=== PATIENT | female | born 1940 | race Caucasian/White ===

== ENCOUNTER 2019-08-17 10:12 | Day surgery (SDC) | payer MEDICARE, SELFPAY ==
[2019-07-24 10:32] VITALS: BMI 28.8
[2019-08-12 08:35] VITALS: BMI 29.3
--- NOTE | 2019-08-12 09:39 | HP_ITS ---
Intake Vital Signs 08/12/19 Body Mass Index (BMI) 29.3 08/12/19 Height 5 ft 4 in 08/12/19 Weight: 166 lb 08/12/19 Body Mass Index (BMI) 28.5 08/12/19 Blood Pressure 127/69 H 08/12/19 Blood Pressure Location Rt brachial 08/12/19 Blood Pressure Position Sitting 08/12/19 Respiratory Rate 16 Intake Visit Reasons: Port Consult Chief Complaint: F/u for Chemotherapy. 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 Is patient in pain?: No Allergies gabapentin Adverse Reaction (Verified 08/12/19 08:33) Other Medications ALPRAZolam [Xanax] 0.125 mg PO BID PRN PRN 07/23/19 [History Confirmed 08/12/19] Ascorbic Acid [Vitamin C] 250 mg PO DAILY 07/23/19 [History Confirmed 08/12/19] Cetirizine HCl [Zyrtec] 10 mg PO DAILY 07/23/19 [History Confirmed 08/12/19] Cholecalciferol (VIT D3) [Vitamin D] 4,000 unit PO DAILY 07/23/19 [History Confirmed 08/12/19] Dicyclomine HCl 20 mg PO Q6H PRN 07/23/19 [History Confirmed 08/12/19] Fluoxetine HCl 60 mg PO DAILY 07/23/19 [History Confirmed 08/12/19] Fluticasone 0.05% [Flonase Nasal [place]] 2 spray NASAL DAILY 07/23/19 [History Confirmed 08/12/19] Ipratropium/Albuterol Respimat [Combivent Respimat Inhal [place]] 1 puff INHALATION 4X/DAY 07/23/19 [History Confirmed 08/12/19] Levothyroxine [Synthroid] 112 mcg PO DAILY 07/23/19 [History Confirmed 08/12/19] Lovastatin [Mevacor] 10 mg PO DAILY 07/23/19 [History Confirmed 08/12/19] Magnesium Citrate 07/23/19 [History Confirmed 08/12/19] Multivitamin 07/23/19 [History Confirmed 08/12/19] Temazepam 30 mg PO QHS 07/23/19 [History Confirmed 08/12/19] Ondansetron [Zofran Odt] 4 mg PO Q8H PRN PRN 10 Days #30 tab 08/04/19 [Rx Confirmed 08/12/19] busPIRone [Buspar] 5 mg PO DAILY 08/04/19 [History Confirmed 08/12/19] PFSH Medical History Anxiety (Acute) Asthma (Acute) Bladder cancer (Acute) Cervical herniated disc (Acute) Hepatitis (Acute) History of bone scan (Acute) Hypothyroidism (Acute) Lumbar stenosis (Acute) transurethral bladder tumor resection (Acute) Surgical History History of appendectomy (Acute) History of carpal tunnel release (Acute) History of hip replacement (Acute) History of tubal ligation (Acute) Family History Mother Heart disease Father Diabetes Social History (Updated 08/12/19 @ 09:39 by Daniel Rahman MD) Smoking Status: Never smoker alcohol intake: never HPI HPI HPI: BENY REYES is a 79 F who presents to the office today for HPI HPI Surgical H&P: Yes HPI: BENY REYES is a 79 F who presents to the office today for Port placement. The patient has bladder cancer and is requiring chemotherapy and has poor veins for chemotherapy. ROS General General: No weight change or fatigue Cardio Cardiovascular: No murmur, pacemaker, heart disease, atrial fibrillation, high blood pressure, heart attack, heart stent, palpitations, shortness of breat with exertion or chest pain Psych Psychiatric: No depression or anxiety Resp Respiratory: No shortness of breath, No sleep apnea, No cough, No COPD, No asthma, No emphysema, No wheezing Gastro Gastrointestinal: No abdominal pain, No nausea or vomiting, No diarrhea, No constipation, No blood in stool, No acid reflux, No hemorrhoids, No ulcers, No gallbladder problem, No black,tarry stools Storm Hematologic: No blood thinners Exam Const General: cooperative Orientation: alert, oriented x3 Resp Effort & Inspection: normal respiratory effort Auscultation: clear to auscultation bilaterally Cardio Rate: regular rate Rhythm: regular rhythm Heart Sounds: no murmurs GI Inspection: non-distended Palpation: soft, nontender Assessment & Plan Problems 1. Malignant neoplasm of urinary bladder, unspecified site C67.9 2. Encounter for insertion of venous access port Z45.2 Plan 1. Patient requires port for chemotherapy. I discussed port placement with the patient in detail. I discussed the risks including but not limited to bleeding, infection, pneumothorax, line infection, DVT. Patient agrees to the risks and would like to proceed with surgery. Daniel Rahman MD Pager: [facility] [address] [place] [address], [address] [place] [address] Office: Coding Level of Care Code Off vis,new,level 3 Diagnoses Malignant neoplasm of urinary bladder, unspecified site C67.9 ??Bladder location: unspecified site Encounter for insertion of venous access port Z45.2 08/12/19 0939 <Electronically signed by Daniel carranza MD> Date _ Daniel Rahman MD I have re-examined the patient. There are no clinical changes since date of exam.
[2019-08-17] VITALS (7 sets, daily range): BP systolic 115–178; BP diastolic 48–76; PULSE 61–70; RESP 16; TEMP 36.4–37.3; O2SAT 94–100; BMI 29.0
[2019-08-17] MEDS: Lactated Ringers 1,000 ML 100 ML IV (13:06)
[2019-08-17] MEDS: Cefazolin 2 GM in 0.9% Normal Saline 100 ML IV (14:26)
--- NOTE | 2019-08-17 15:23 | OP.PCM_ITS ---
Problem List (1) Encounter for adjustment and management of vascular access device Status: Acute Report of Operation Date of Procedure: 08/17/19 Pre-Operative Diagnosis: Bladder cancer need for vascular access Post-Operative Diagnosis: Same Surgery/Procedure Performed:: Fluoroscopy and ultrasound-guided right chest port placement with right IJ utilization Description of Procedure: After obtaining informed consent patient was brought back to the operating room MAC anesthesia was induced and the right chest and neck were prepped in normal sterile fashion. Ultrasound was used to evaluate both IJs and the right IJ was selected. Next, using a needle, the right IJ was accessed and a guidewire was passed on into the superior vena cava under fluoroscopy guidance. A small incision was made over the puncture site and the dilator introducer was placed over the guidewire. Next this was capped and the pocket was made for the port. 1% lidocaine with epinephrine was injected in the proposed port site. An incision was made with scalpel. Electrocautery was used to make a pocket under the skin and subcutaneous tissue. Hemostasis was obtained. Next, the catheter was tunneled up to the neck incision site and placed through the introducer. The peel-away introducer was removed and the position of the catheter was confirmed on fluoroscopy. Next, the catheter was trimmed and attached to the port with the locking device. Interrupted 2-0 Vicryl sutures were used to anchor the port to the chest wall and then the port was placed inside the pocket. The pocket was then flushed with saline and the port irrigated with saline. There was good blood return and the port flushed easily. Next, heparin was injected into the port. The skin was closed with subcutaneous interrupted 3-0 Vicryl sutures. A single 3-0 Vicryl sutures placed under the skin at the neck incision site. Steri-Strips were placed as well as op sites. Next the port was accessed with the provided 90 degree Greene needle and the catheters were flushed once more with saline and heparin. The port was left accessed. Patient tolerated procedure well, was taken to PACU in stable condition. Chest x-ray will be obtained. Grafts/Implants Used: 8 [place] PowerPort - Admit VTE Documentation VTE Mechan Device Prophylaxis: SCD's
--- NOTE | 2019-08-17 15:25 | RAD_ITS ---
STUDY: X-RAY CHEST REASON FOR EXAM: Female, 79 years old. Vascular port placement. TECHNIQUE: Single AP portable view of the chest. COMPARISON: None. FINDINGS: A right-sided ngoc catheter is seen with the tip in the midportion of the superior vena cava. Calcified granuloma in the left lower lobe. There is no demonstrated pleural abnormality. Normal size heart. Normal mediastinum and hailee. Normal visualized pulmonary arteries. There is atherosclerotic calcification of the aortic arch with tortuosity. There are diffuse degenerative changes of the visualized thoracic spine. There is degenerative osteoarthritis of the bilateral shoulders. Prior left rotator cuff surgery. There is no demonstrated abnormality of the visualized soft tissue structures of the upper abdomen. RAD/CXR for Line Placement IMPRESSION: Calcified granuloma in the left lower lobe. Electronically Signed: Jordi Li, at 15:47 EST , Service support ,
--- NOTE | 2019-08-17 15:25 | PCM.DC.POR ---
Discharge Diet: No Restrictions - Pain medication may cause nausea. You should typically eat light foods as you take your pain medication. Discharge Activity: Return to Normal Activity, May Shower - with your bandage in place in 1-2 days after surgery. DO NOT SHOWER WHEN YOUR PORT IS ACCESSED. Call your doctor if your incision/area has: Continuous Slow Oozing, Sudden Increased Bleeding, Increased Pain/ Swelling, Increased Redness Call your doctor if you observe: Fever of 101 or Higher Remove Dressing in (days):: 3 - When you remove the bandage, leave the steri-strips intact until they fall off. Allergies/Adverse Reactions: Allergies gabapentin Adverse Reaction (Verified 08/17/19 12:39) Other Medications to take at Discharge ALPRAZolam [Xanax] 0.125 mg PO BID PRN PRN 07/23/19 Ascorbic Acid [Vitamin C] 250 mg PO DAILY 07/23/19 Cetirizine HCl [Zyrtec] 10 mg PO DAILY 07/23/19 Cholecalciferol (VIT D3) [Vitamin D] 4,000 unit PO DAILY 07/23/19 Dicyclomine HCl 20 mg PO Q6H PRN 07/23/19 Fluoxetine HCl 60 mg PO DAILY 07/23/19 Fluticasone 0.05% [Flonase Nasal [place]] 2 spray NASAL DAILY 07/23/19 Ipratropium/Albuterol Respimat [Combivent Respimat Inhal [place]] 1 puff INHALATION BID 07/23/19 Levothyroxine [Synthroid] 112 mcg PO DAILY 07/23/19 Lovastatin [Mevacor] 10 mg PO DAILY 07/23/19 Multivitamin 1 tab PO DAILY 07/23/19 Temazepam 30 mg PO QHS 07/23/19 Ondansetron [Zofran Odt] 4 mg PO Q8H PRN PRN 10 Days #30 tab 08/04/19 busPIRone [Buspar] 5 mg PO DAILY 08/04/19 Docusate Sodium [Colace] 100 mg PO DAILY PRN PRN 08/12/19 Primary Care Physician: STEPHANIE NEAL [Other] Test Results: Test results from this visit will be discussed in further detail at your follow-up appointment, if applicable. Please Follow Up With: Daniel Rahman MD When: Please call to schedule 2 week follow up appointment. [phone]
[2019-08-17] MEDS: Acetaminophen 325 MG Tablet 650 MG PO (16:36)
== END 2019-08-17 16:38 | disposition home or self-care (01) ==
LOC: SDC 10:13 → AC 12:24
PROVIDERS: Referring Provider Surgery; Visit Provider Surgery
PROC: (CPT 36561; principal; 2019-08-17 14:05)
DX: Z51.0 Encounter for antineoplastic radiation therapy (principal); C67.8 Malignant neoplasm of overlapping sites of bladder; Z45.2 Encounter for adjustment and management of vascular access device; F41.9 Anxiety disorder, unspecified; J45.909 Unspecified asthma, uncomplicated; E03.9 Hypothyroidism, unspecified; F32.9 Major depressive disorder, single episode, unspecified; Z79.51 Long term (current) use of inhaled steroids; Z79.899 Other long term (current) drug therapy
CPT/HCPCS: 00532; 36561; 71045; 77001; 77386; J7120; C1788

== ENCOUNTER 2019-09-06 20:08 | Emergency (ER) | payer MEDICARE, SELFPAY ==
[2019-07-24 10:32] VITALS: BMI 28.8
[2019-09-01 13:06] VITALS: BMI 29.1
[2019-09-06 20:09] VITALS: BP 162/66; PULSE 76; RESP 18; TEMP 37.2; O2SAT 99; BMI 28.5
--- NOTE | 2019-09-06 20:50 | ED.VISSUMM ---
- ER Visit Summary Date of Service: 09/06/19 Chief Complaint: Abdominal pain History of Present Illness: The patient is a 79 F who presents with abdominal pain that is been getting worse over the past week. Patient states she has a history of bladder cancer and is under treatment with Dr. Del Angel and Dr. Almazan. Patient states her last chemotherapy was 2 weeks ago. Patient states her last radiation was 5 days ago. Patient states her pain is over her upper abdomen and mid abdomen. Patient states her pain is worse with palpation. Patient admits to some nausea and vomiting. Patient had 3 episodes today. Patient denies any hematemesis or coffee-ground emesis. Patient states she did have some diarrhea recently and took some Imodium for that. Patient states that now she is constipated. Patient admits to some dysuria but she thinks that this is because she only urinates a small amount. Patient denies any hematuria. Physical Examination: Vital signs are stable. Patient is afebrile. Patient is in no acute distress. Oral mucosa is pink and moist. Neck is supple. Trachea is midline. There is no JVD. Heart was regular rate and rhythm. Lungs are clear and equal bilaterally. There is adequate respiratory effort noted. Abdomen is soft. Bowel sounds are normal. There is upper abdominal tenderness. There is no rebound or guarding noted. Cranial nerves II through XII are intact. There are no focal motor or sensory deficits noted. Test Results: CBC shows a white blood cell count of 3.4, hemoglobin of 8.2 and hematocrit 27.0. Comprehensive metabolic profile and lipase were essentially within normal limits. CT scan of the abdomen and pelvis with oral and IV contrast was ordered and is pending. Urinalysis was also ordered and is pending. Emergency Department Course and Treatment: Patient was given IV fluids and Zofran here. Patient is feeling better on reevaluation. Patient states she had a bowel movement and is feeling better. Disposition: Care of the patient was turned over to the oncoming physician. Impression: 1. Abdominal pain This note was generated with [employer] dictation software. It may contain incorrect words, spelling, and punctuation that were not noted in review of the chart prior to signing ED Disposition - Plan for ED Patient: Referrals: Care Physician,No Primary [NON-STAFF] -
--- NOTE | 2019-09-06 20:54 | CT_ITS ---
STUDY: CT ABDOMEN AND PELVIS WITH CONTRAST REASON FOR EXAM: Female, 79 years old. UPPER ABDOMEN PAIN X 1 WEEK,NAUSEA AND VOMITING,CONSTIPATION,PT HAD CHEMO 5 DAYS AGO -- HX:BLADDER CANCER,ASTHMA,HYPOTHYROID -- SURGERY:APPENDECTOMY,TUBAL,BLADDER RESECTION RADIATION DOSAGE (If Supplied By Facility): CTDIvol = ( 17.87 ) mGy, DLP = ( 1635.26 ) mGycm TECHNIQUE: Transaxial images were obtained from the dome of the diaphragm to the symphysis pubis without oral contrast. Oral and amp; IV Gastrografin and amp; 100mL Isovue-300 was administered. Sagittal and coronal images were reconstructed. Individualized dose optimization techniques were used for this CT. COMPARISON: None. FINDINGS: There are several calcified granulomas of the left lingula. There is a noncalcified right lower lobe nodule measuring 1.3 cm. The heart size is normal. There is no pericardial effusion. There are several tiny calcified granulomas of the liver. There is a small amount of calcific gravel in the gallbladder. There are multiple benign calcified granulomata of the spleen. Normal pancreas. The right adrenal appears normal. There is a small calcification of the left adrenal. Normal right kidney. Normal left kidney. Normal visualized stomach. Normal small intestine. Normal colon. The appendix is nonvisualized in accordance with history of appendectomy. There are calcified plaques of the abdominal aorta and common iliac arteries. Normal inferior vena cava. Normal retroperitoneum. The urinary bladder is suboptimally visualized secondary to scanning artifact caused by left hip implants. The visualized urinary bladder is unremarkable. Uterus and adnexal structures appear within normal limits. Normal abdominal wall. There are diffuse degenerative changes of the visualized thoracolumbar spine. There is a grade 1 anterolisthesis of L3 relative to L4. CT/Abdomen/Pelvis WITH Contrast IMPRESSION: 1. There are several calcified granulomas of the left lingula. 2. There is a noncalcified right lower lobe nodule measuring 1.3 cm. The possibility of metastatic lesion should be considered. 3. There are calcified granulomas of the liver and spleen. 4. There is a small amount of calcific gravel in the gallbladder. 5. Nonvisualization of the appendix in accordance with history of appendectomy. 6. Diffuse degenerative changes of the visualized thoracolumbar spine. Grade 1 anterolisthesis of L3 relative to L4. Electronically Signed: Sarabjit Mary MD at 23:39 EST , Service support ,
[2019-09-06] MEDS: 0.9% Normal Saline 1,000 ML 1000 ML IV (21:10)
[2019-09-06] MEDS: Ondansetron 4 MG/2 ML Vial IV (21:10)
[2019-09-06 21:37] LABS: Absolute Neutrophil Count 2.4 X10^3/uL (2.0-7.7); Basophil# 0.01 X10^3/uL; Basophil% 0.3 % (0-1); Eosinophil# 0.06 X10^3/uL; Eosinophils% 1.8 % (0-5); Hemoglobin 8.2 g/dL (12.0-15.0); Lymphocyte % 8.9 % (19-41); Mean Corp Hgb Conc 30.4 g/dL (32-36); Mean Corpuscular Hgb 27.8 pg (27.0-32.0); Mean Corpuscular Volume 91.5 fL (81-99); Mean Platelet Vol. 9.5 fl (6.2-12.0); Monocyte# 0.62 X10^3/uL; Monocyte% 18.5 % (0-10); NRBC Flagged by Analyzer 0 % (0-5); Neutrophil # 2.36 X10^3/uL (2.7-7.7); Neutrophil % 70.2 % (47-70); POSITIVE DIFFERENTIAL YES; Platelet Count 251 K/mm3 (150-450); RBC Distribution Width CV 18.1 % (11.6-14.6); RBC Distribution Width SD 57.6 fl (35.1-43.9); Red Blood Count 2.95 M/mm3 (4.2-5.4); White Blood Count 3.4 K/mm3 (4.4-11.0)
[2019-09-06 21:40] LABS: Differential Indicated SCAN CRITERIA MET
[2019-09-06 22:01] LABS: AST(SGOT) 13 U/L (15-37); Alanine Aminotransfer ALT/SGPT 18 U/L (13-56); Albumin, Serum 2.9 g/dL (3.2-5.0); Alkaline Phosphatase 48 U/L (45-117); Anion Gap 5 (5-15); BUN 12 mg/dL (7-18); BUN/Creat Ratio 22.3 RATIO (10-20); Calcium,Total 8.3 mg/dL (8.5-10.1); Chloride 113 mmol/L (98-107); Creatinine, Serum 0.54 mg/dL (0.55-1.02); EST Glomerular Filtration Rate 116 mL/min (>60); Est Glom Filt Rate - Afr Amer 140 mL/min (>60); Globulin 2.8 g/dL (2.2-4.2); Glucose 80 mg/dL (74-106); Lipase 31 U/L (73-393); Potassium 3.5 mmol/L (3.5-5.1); Protein, Total 5.7 g/dL (6.4-8.2); Sodium Level 142 mmol/L (136-145)
[2019-09-06 22:11] VITALS: BP 184/73; PULSE 77; RESP 18; O2SAT 99
[2019-09-06 23:03] LABS: Mucous, Urine 0 SEEN /hpf (<or=2+); Squamous Epithelial Cells - UA 0 SEEN /hpf (5-10)
[2019-09-06 23:12] LABS: Color, Urine Yellow (Yellow); Glucose, Dipstick Normal (Normal); Ketone-Dipstick 15 mg/dl (Negative); Leukocyte Esterase-Dipstick 100 /ul (Negative); Nitrite-Dipstick Negative (Negative); Occult Blood-Urine 50 /ul (Negative); Protein-Dipstick 15 mg/dl (Negative); Urine Bilirubin Dipstick Negative (Negative); Urine Clarity Sl. Cloudy (Clear); Urine Urobilinogen Normal (Normal)
[2019-09-06 23:20] LABS: Bacteria 2+ /hpf (None Seen); Red Blood Cells-Urine 0-5 SEEN /hpf (0-5); White Blood Cells 0-5 SEEN /hpf (0-5)
[2019-09-07 00:13] VITALS: BP 144/73; PULSE 68; RESP 16; O2SAT 98
--- NOTE | 2019-09-07 00:24 | ED.DEP ---
ED Disposition - Plan for ED Patient: Disposition: Home or Assisted Living Diagnosis: Abdominal pain, Cholelithiasis Instructions: ABDOMINAL PAIN, Unknown Cause, (Female), Gallstones, CONSTIPATION (Adult) Referrals: Ruy Del Angel MD [NON-STAFF] - 3-5 Days if not improving
[2019-09-07 00:31] VITALS: BP 156/56; PULSE 66; RESP 16; O2SAT 98
[2019-09-08 11:28] LABS: Pathologist Review Reviewed
== END 2019-09-07 00:39 | disposition home or self-care (01) ==
PROVIDERS: Emergency Provider Emergency Medicine
DX: R10.10 Upper abdominal pain, unspecified (principal); K80.20 Calculus of gallbladder without cholecystitis without obstruction; C67.9 Malignant neoplasm of bladder, unspecified
CPT/HCPCS: 36591; 74177; 80053; 81001; 83690; 85025; 87086; 87088; 96361; 96374; 99284; J7030; Q9967; A4216; J2405

== ENCOUNTER → 2019-09-18 08:21 | Outpatient (CLI) | payer MEDICARE, SELFPAY ==
[2019-07-24 10:32] VITALS: BMI 28.8
[2019-09-08 08:53] VITALS: BMI 29.5
--- NOTE | 2019-09-18 08:21 | MRI_ITS ---
STUDY: MRI BRAIN WITH AND WITHOUT CONTRAST REASON FOR EXAM: Female, 79 years old. Bladder CA, N/V, imbalance TECHNIQUE: Standardized multiplanar fat and water weighted pulse sequences were obtained. 15ml Dotarem via port was administered for the contrast portion of the examination. COMPARISON: None. FINDINGS: There is no acute infarct. There is no mass effect, midline shift, extra parenchymal fluid collections or herniation. There is remote chronic ischemic change in the right frontal white matter and a small remote infarct in the left cerebellum. There are no intracranial metastases. MRI/Brain W/WO Contrast IMPRESSION: 1. No intracranial metastases. 2. Mild white matter chronic ischemic change. Electronically Signed: Becki Clark, at 18:34 EST Tel , Service support ,
[2019-09-18 09:13] LABS: Creatinine, Serum 0.63 mg/dL (0.55-1.02); EST Glomerular Filtration Rate 96 mL/min (>60); Est Glom Filt Rate - Afr Amer 116 mL/min (>60)
--- NOTE | 2019-09-18 10:21 | CT_ITS ---
STUDY: CT CHEST WITH CONTRAST REASON FOR EXAM: Female, 79 years old. New lung nodule, hx bladder cancer, chemotherapy, Power Port. RADIATION DOSAGE (If Supplied By Facility): CTDIvol = ( 27.59 ) mGy, DLP = ( 455.25 ) mGycm TECHNIQUE: Transaxial imaging was performed following intravenous administration of IV 100mL Isovue-300. Multiplanar coronal and sagittal images were reformatted. Individualized dose optimization techniques were used for this CT. COMPARISON: 09/06/2019 FINDINGS: There is a smoothly marginated noncalcified nodule in the right lower lobe on image 79 measuring 12 mm. There is trace right pleural fluid. There are densely calcified granuloma in left lower lobe. Right chest port is present with tip extending to the lower SVC. There is mild cardiac enlargement. There are calcifications of the coronary arteries. There is adenopathy in the subcarinal paraesophageal mediastinum due to Station 7 lymph node measuring 1.5 x 2.3 cm on image 54 and a paraesophageal lymph node measuring 1.3 x 1.7 cm on image 58. There is an enlarged lymph node of the right hilum measuring 1.8 x 2.4 cm on image 67. There is prominence of the pulmonary hilar arteries without peripheral pulmonary vascular congestion, suggesting pulmonary hypertension. There is atherosclerotic calcification of the aortic arch with tortuosity and elongation of the aortic arch and descending thoracic aorta. There are degenerative changes of the thoracic spine and bilateral shoulders. There are granulomatous calcifications of the spleen. 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 CT/Chest WITH Contrast IMPRESSION: 1. 12 mm right lower lobe nodule. Right hilar and lower mediastinal (subcarinal, paraesophageal) adenopathy. PET scan and/or tissue sampling recommended. 2. Mild cardiomegaly. Suspect portal hypertension. Electronically Signed: Zhen Tovar MD ([place]) at 14:45 EST , Service support ,
[2019-09-18] MEDS: 0.9% Saline Lock 10 ML Syringe IV ×2 (10:25→10:40)
== END ==
PROVIDERS: Referring Provider Student in an Organized Health Care Education/Training Program; Visit Provider Student in an Organized Health Care Education/Training Program
DX: Z01.812 Encounter for preprocedural laboratory examination (principal); R11.2 Nausea with vomiting, unspecified; R91.1 Solitary pulmonary nodule; C67.9 Malignant neoplasm of bladder, unspecified
CPT/HCPCS: 70553; 71260; 82565; A9575; Q9967; A4216

== ENCOUNTER → 2019-09-30 11:53 | Outpatient (CLI) | payer MEDICARE, SELFPAY ==
[2019-07-24 10:32] VITALS: BMI 28.8
[2019-09-30 07:53] VITALS: BMI 29.2
[2019-09-30 12:44] LABS: Absolute Lymphocyte Count 1.18 X10^3/uL (0.83-4.51); Absolute Neutrophil Count 2.6 X10^3/uL (2.0-7.7); Basophil# 0.02 X10^3/uL; Basophil% 0.5 % (0-1); Eosinophil# 0.03 X10^3/uL; Eosinophils% 0.7 % (0-5); Hematocrit 30.4 % (37-47); Hemoglobin 9.3 g/dL (12.0-15.0); Lymphocyte # 1.18 X10^3/ul (4.0); Lymphocyte % 27.7 % (19-41); Mean Corp Hgb Conc 30.6 g/dL (32-36); Mean Corpuscular Hgb 28.1 pg (27.0-32.0); Mean Corpuscular Volume 91.8 fL (81-99); Mean Platelet Vol. 9.8 fl (6.2-12.0); Monocyte# 0.43 X10^3/uL; Monocyte% 10.1 % (0-10); NRBC Flagged by Analyzer 0 % (0-5); Neutrophil # 2.58 X10^3/uL (2.7-7.7); Neutrophil % 60.5 % (47-70); Platelet Count 206 K/mm3 (150-450); RBC Distribution Width CV 18.1 % (11.6-14.6); RBC Distribution Width SD 61.2 fl (35.1-43.9); Red Blood Count 3.31 M/mm3 (4.2-5.4); White Blood Count 4.3 K/mm3 (4.4-11.0)
[2019-09-30 12:52] LABS: International Normalized Ratio 1.2; Prothrombin Time (Protime)PT. 14.5 SECONDS (11.7-14.9)
== END ==
LOC: PAVLAB 12:02 → MEDOUTP 12:02
PROVIDERS: PCP Internal Medicine; Referring Provider Internal Medicine Critical Care Medicine; Visit Provider Internal Medicine Critical Care Medicine
DX: C68.9 Malignant neoplasm of urinary organ, unspecified (principal)
CPT/HCPCS: 36591; 85025; 85610; A4216

== ENCOUNTER 2019-10-16 11:17 | Day surgery (SDC) | payer MEDICARE, SELFPAY ==
[2019-07-24 10:32] VITALS: BMI 28.8
[2019-09-30 07:53] VITALS: BMI 29.2
--- NOTE | 2019-10-14 13:16 | HP.PCM_ITS ---
History of Present Illness Date of Admission: 10/14/19 Chief Complaint: Mediastinal lymphadenopathy The patient is an 79-year-old female who initially presented to the pulmonary medicine clinic on September 30 in referral for the evaluation of mediastinal lymphadenopathy. The patient has a known history of high-grade urothelial carcinoma status post chemoradiation. The patient is currently followed by both Dr. Almazan and Mer of oncology. Recent chest CT with contrast completed on September 18 revealed a new right lower lobe lung nodule along with right hilar and mediastinal lymphadenopathy, which was not present on prior chest imaging. Follow-up PET scan completed on September 28 was positive in the area of the afo rementioned right lower lobe nodule along with within the mediastinum and right hilar region. The patient was subsequently referred to our office to be evaluated for potential EBUS directed transbronchial needle aspiration of the aforementioned mediastinal lymphadenopathy. The patient is a lifelong non- smoker, but does report a history of asthma, which is mild and intermittent. She is not on any maintenance inhalers in her home environment. Her weight and appetite have been stable. She is not currently on any form of systemic anticoagulation. Past Medical History Past Medical History (Chronic Problems): Chronic Problems (Last Reviewed 09/30/19 @ 10:56 by Kenya Valenzuela) Bladder cancer (Chronic) Medical History: Medical History (Last Reviewed 09/30/19 @ 10:56 by Kenya Valenzuela) transurethral bladder tumor resection (Acute) [facility] 06/12/19 tumor biopsy. History of bone scan (Acute) Z92.89 [facility] 06/17/19 Anxiety (Acute) F41.9 Asthma (Acute) J45.909 Bladder cancer (Acute) C67.9 Cervical herniated disc (Acute) M50.20 Hepatitis (Acute) K75.9 Hypothyroidism (Acute) E03.9 Lumbar stenosis (Acute) M48.061 Allergies gabapentin Adverse Reaction (Verified 10/13/19 11:36) Other Home Medications: Ambulatory Orders Medication Instructions Recorded ALPRAZolam [Xanax] 0.125 mg PO BID PRN PRN 07/23/19 Ascorbic Acid [Vitamin C] 250 mg PO DAILY 07/23/19 Cetirizine HCl [Zyrtec] 10 mg PO DAILY 07/23/19 Cholecalciferol (VIT D3) [Vitamin 4,000 unit PO DAILY 07/23/19 D] Fluoxetine HCl 60 mg PO DAILY 07/23/19 Fluticasone 0.05% [Flonase Nasal 2 spray NASAL DAILY 07/23/19 [place]] Levothyroxine [Synthroid] 112 mcg PO DAILY 07/23/19 Lovastatin [Mevacor] 10 mg PO DAILY 07/23/19 Multivitamin 1 tab PO DAILY 07/23/19 Temazepam 30 mg PO QHS 07/23/19 Ondansetron [Zofran Odt] 4 mg PO Q8H PRN PRN 10 Days #30 tab 08/04/19 busPIRone [Buspar] 5 mg PO DAILY 08/04/19 Docusate Sodium [Colace] 100 mg PO DAILY PRN PRN 08/12/19 Lidocaine/Prilocaine 1 applic TP DAILY PRN PRN 30 Days 08/25/19 [Lidocaine-Prilocaine Cream] #1 tube Albuterol Aerosols [Ventolin 2.5 mg INHALATION Q6H PRN PRN 10/13/19 Aerosols] Budesonide/Formoterol Fumarate 1 puff IH BID 10/13/19 [Symbicort 80-4.5 Mcg Inhaler] Magnesium Oxide [Magnesium] 500 mg PO DAILY 10/13/19 Surgical History: Surgical History (Last Reviewed 09/30/19 @ 10:57 by Kenya Valenzuela) History of appendectomy (Resolved) Z90.49 History of hip replacement (Resolved) Z96.649 History of carpal tunnel release (Resolved) Z98.890 History of tubal ligation (Resolved) Z98.51 Smoking Status: Never smoker Tobacco Use: Non-smoker Review of Systems Constitutional: Denies: Chills, Fever, Weight Change HEENT: Denies: Head Aches, Sinus Congestion, Sinus Drainage Cardiovascular: Denies: Chest Pain, Palpitations Respiratory: Denies: Cough, Shortness of breath at rest, Sputum production Gastrointestinal: Denies: Abdominal Pain, Nausea, Vomiting Genitourinary: Denies: Dysuria Musculoskeletal: Denies: Joint Pain, Joint Tenderness Skin: Denies: Rash, Wounds Neurological: Denies: Numbness, Tingling, Focal weakness Psychiatric: Denies: Anxiety, Depression, Homicidal Ideations, Suicidal Ideations Hematologic/ Lymphatic: Denies: Easy Bruising, Easy Bleeding VTE Information - Inpt Only VTE Present on Admission: No VTE Mechan Device Prophylaxis: None VTE Pharm Prophylaxis ordered?: No Reason prophylaxis not ordered:: Treatment Not Indicated - Physical Exam Vitals/I&O's: Body Mass Index (BMI) 29.2 General: Alert, Cooperative, No apparent distress HEENT: Atraumatic, Normocephalic Oral: No Gingival or Mucosal Lesions/ Ulcerations Neck: Supple, No Nodes, Trachea Midline Lungs: Normal air movement Cardiovascular: Regular rate, No murmurs Abdomen: Bowel Sounds Present, Soft, Non Tender Extremities: No edema, Capillary Refill Less than 3 Seconds Skin: No rashes, No breakdown Musculoskeletal: No Tenderness to Palpation of Joints or Extremities Neurological: Neuro grossly intact Psych/Mental Status: Normal Affect, Appropriate Assessment/Plan All Active Problems (Last Reviewed 09/30/19 @ 10:56 by Kenya Valenzuela) transurethral bladder tumor resection (Acute) History of bone scan (Acute) Anxiety (Acute) Asthma (Acute) Bladder cancer (Acute) Cervical herniated disc (Acute) Hepatitis (Acute) Hypothyroidism (Acute) Lumbar stenosis (Acute) History of appendectomy (Resolved) History of hip replacement (Resolved) History of carpal tunnel release (Resolved) History of tubal ligation (Resolved) Chemotherapy management, encounter for (Acute) Encounter for adjustment and management of vascular access device (Acute) Anemia (Acute) Fatigue (Acute) Diarrhea (Acute) Vomiting (Acute) Mediastinal lymphadenopathy (Acute) Lung nodule, multiple (Acute) Assessment & Plan 1. Mediastinal lymphadenopathy R59.0 Plan The patient does have a history of urothelial carcinoma. Her recent CT chest along with PET scan were personally reviewed and discussed with the patient. The findings are certainly concerning for potential metastatic disease. The idea of proceeding with EBUS assisted transbronchial needle aspiration of the PET positive mediastinal and hilar lymph node stations were discussed with the patient at length. Questions were answered accordingly. The patient is in agreement to proceed.
--- NOTE | 2019-10-16 | IMM_PTH ---
PATIENT: BENY REYES LOC: [facility] U#:[id number] AGE/SX: 79/F ROOM: RE10/16/[address]: Dr. Blair Rodriguez DO : 1940 BED: DIS: 10/16/2019 SPEC #: [id number] RECD: 10/19/19 10:35 STATUS: SOUCristian REQ #: [id number] MAIRA: 10/16/19 00:[address]: Blair Rodriguez DEPT: IMMUNOHISTOCHEMISTRY RECD BY: Tresa Hudson ENTERED: 10/19/19 10:37 SP TYPE: IMMUNO OTHR DR: Dr. Lyndon Yoo DO Tissues: F - Lung, NOS Procedures: RCC (add) NAPSIN A (add) CK20 (add) CK5-6 (add) CK7 (add) CK8 (add) HEP PAR (add) HER2 JOANNA (add) MAMM (add) KS (add) TTF1 (add) GATA3 (add) P40 (add) CD44 (add) ER (initial) PHYSICIAN & INSTITUTION [address] [address] SPECIMEN INFORMATION: Tissue Source: F - EBUS, TBNA, site 7 Clinical Info: Mediastinal lymphadenopathy Specimen Number: [id number] CPT code: 19438, 93631 x14 METHODOLOGY: Deparaffinized sections of prefer/formalin-fixed tissue or PAP/DQ stained slides are incubated with monoclonal/polyclonal antibodies/oligonucleotide probes. Localization is made via biotin free immunoperoxidase method. Appropriate controls are performed and reacted as expected. Results on target cell population are indicated in the following table: RESULTS: ANTIBODY / CLONE RESULT Block F ER (6F11) negative KS (1E2) negative Her-2neu (CB11) negative Mammaglobin (31A5) negative GATA3 (L50-823) negative CK7 (OV-TL12/30) negative CK8 (72hdusH48) positive CK20 (KS20.8) negative TTF-1 (8G7G3/1) negative Napsin A (Rabbit Polyclonal) negative HepPar (OCh1E5) negative RCC (PN-15) negative anti-CD44 (SP37) positive CK5-6 (D5 & 1684) positive P40 (BC28) negative These tests were developed and their performance characteristics determined by [facility]. They may not have been cleared or approved by the U.S. Food and Drug Administration. The FDA has determined that such clearance or approval is not necessary. The above immunohistochemical/dualISH markers are ordered and reviewed by the Pathologist. INTERPRETATION: F. EBUS, TBNA, site 10R: Consistent with metastatic poorly differentiated non-small cell carcinoma. SJ:ruddy 10/20/19 Comment: IHC is compatible with clinical impression of bladder primary. Case has been reviewed in consultation with Dr. Pablo who concurs with the above diagnosis. IDC:AM
[2019-10-16 11:46] VITALS: BP 191/69; PULSE 59; RESP 14; TEMP 37.2; O2SAT 100; BMI 27.7
[2019-10-16] MEDS: Lactated Ringers 1,000 ML 100 ML IV (12:10)
--- NOTE | 2019-10-16 13:00 | FLU_PTH ---
PATIENT: BENY REYES LOC: [facility] U#:[id number] AGE/SX: 79/F ROOM: RE10/16/[address]: Dr. Blair Rodriguez DO : 1940 BED: DIS: 10/16/2019 SPEC #: [id number] RECD: 10/16/19 13:23 STATUS: HERBER REQ #: [id number] MAIRA: 10/16/19 13:[address]: Blair Rodriguez DEPT: CYTOLOGY RECD BY: Zenon Kenny ENTERED: 10/16/19 13:24 SP TYPE: Fluid OTHR DR: Dr. Lyndon Yoo DO Tissues: A - Lung, NOS B - Lung, NOS C - Lung, NOS D - Lung, NOS E - Lung, NOS F - Lung, NOS Procedures: Special Stain Group II Surgery Specimen Level IV Cytospin Fluid Cytology Other HEADER OPERATION: Endobronchial ultrasound PRE-OP DIAGNOSIS: Mediastinal lymphadenopathy TISSUE SUBMITTED: A & B - TBNA, FNA, site 7, C & D - TBNA, FNA, site 10R, E - TBNA, site 7, F - TBNA, site 10R DIAGNOSIS CYTOLOGY A. EBUS, TBNA, aspiration #1, site 7 (smears): Positive for malignant cells derived from metastatic non-small cell carcinoma. B. EBUS, TBNA, aspiration #2, site 7 (smears): Positive for malignant cells derived from metastatic non-small cell carcinoma. C. EBUS, TBNA, aspiration #3, site 10R (smears): Positive for malignant cells derived from metastatic non-small cell carcinoma. D. EBUS, TBNA, aspiration #4, site 10R (smears): Positive for a few malignant cells present derived from metastatic non-small cell carcinoma. E. EBUS, TBNA, site 7, subcarina fluid (cell block): Consistent with metastatic poorly differentiated non-small cell carcinoma. F. EBUS, TBNA, site 10R, right hilar fluid (cell block): Consistent with metastatic poorly differentiated non-small cell carcinoma See comment. SJ:ruddy 10/20/19 COMMENT The specimen is evaluated at the time of procedure by Dr. Pablo. Immediate evaluation: A. EBUS, TBNA, aspiration #1, site 7: Positive for malignant cells consistent with metastatic carcinoma. Reported to Dr. Rodriguez at 12:46 p.m. B. EBUS, TBNA, aspiration #2, site 7: Positive for malignant cells consistent with metastatic carcinoma. Reported to Dr. Rodriguez at 12:50 p.m. C. EBUS, TBNA, aspiration #3, site 10R: Positive for malignant cells consistent with metastatic carcinoma. Reported to Dr. Rodriguez at 12:53 p.m. D. EBUS, TBNA, aspiration #4, site 10R: Positive for rare atypical cells consistent with carcinoma. Reported to Dr. Rodriguez at 12:57 p.m. F. Immunohistochemistry ([id number]) supports the above diagnosis and compatible with clinical impression of bladder primary. Sarcomatoid differentiation is not seen in this specimen. Molecular studies on the tumor can be performed if clinically indicated. Please notify the laboratory if they are needed. As per patient's EMR, patient has history of high-grade urothelial carcinoma status post chemoradiation. Please also make reference to previous specimen from [facility] dated 07/15/19 ([id number]) bladder tumor #1, 2, 3 & 4 (A, B, C & E)) and bladder tumor, deep (D), TUR with diagnosis of invasive urothelial carcinoma, high-grade with sarcomatoid differentiation. Case has been reviewed in consultation with Dr. Pablo who concurs with the above diagnosis. IDC:AM CYTOLOGY STUDY Slides are reviewed. CYTOLOGY GROSS A - Received labeled with the patient's name and and designated EBUS, TBNA, aspiration #1, site 7. The specimen consists of two smears. The smears are submitted for immediate cytologic evaluation (wet read). B - Received labeled with the patient's name and and designated EBUS, TBNA, aspiration #2, site 7. The specimen consists of two smears. The smears are submitted for immediate cytologic evaluation (wet read). C - Received labeled with the patient's name and and designated EBUS, TBNA, aspiration #3, site 10R. The specimen consists of two smears. The smears are submitted for immediate cytologic evaluation (wet read). D - Received labeled with the patient's name and and designated EBUS, TBNA, aspiration #4, site 10R. The specimen consists of two smears. The smears are submitted for immediate cytologic evaluation (wet read). E - Received is 40 ml of red, cloudy fluid in RPMI labeled with the patient's name and and designated EBUS, TBNA, site 7 (subcarina) submitted for cell block. F - Received is 40 ml of red, cloudy fluid in RPMI labeled with the patient's name and and designated EBUS, TBNA, site 10R (right hilar) submitted for cell block. / AM:ruddy 10/16/19 TC:0 CPT: 14549 x2, 27206 x2, 28159 x2, 72720 x2
[2019-10-16 13:07] VITALS: BP 140/61; BP 191/69; PULSE 73; RESP 16; TEMP 36.2; O2SAT 97
--- NOTE | 2019-10-16 13:13 | OP.BRONCH_ITS ---
Patient Name: [facility] Procedure Date: 10/16/2019 10:45 AM Date of : 1940 Age: 79 Procedure: Bronchoscopy Indications: Mediastinal adenopathy Providers: Blair Rodriguez MD Referring MD: Lyndon Gutierrez Do Requesting Physician: Brayan Almazan Medicines: General Anesthesia Complications: No immediate complications Procedure: Pre-Anesthesia Assessment: - A History and Physical has been performed. Patient meds and allergies have been reviewed. The risks and benefits of the procedure and the sedation options and risks were discussed with the patient. All questions were answered and informed consent was obtained. Patient identification and proposed procedure were verified prior to the procedure by the physician and the nurse in the procedure room. Mental Status Examination: alert and oriented. Airway Examination: normal oropharyngeal airway. Respiratory Examination: clear to auscultation. CV Examination: normal. ASA Grade Assessment: II - A patient with mild systemic disease. After reviewing the risks and benefits, the patient was deemed in satisfactory condition to undergo the procedure. The anesthesia plan was to use general anesthesia. Immediately prior to administration of medications, the patient was re-assessed for adequacy to receive sedatives. The heart rate, respiratory rate, oxygen saturations, blood pressure, adequacy of pulmonary ventilation, and response to care were monitored throughout the procedure. The physical status of the patient was re-assessed after the procedure. After I obtained informed consent, the scope was passed under direct vision. Throughout the procedure, the patient's blood pressure, pulse, and oxygen saturations were monitored continuously.The procedure was accomplished without difficulty. The patient tolerated the procedure well. The ultrasound bronchoscope was introduced through the mouth, via laryngeal mask airway and advanced to the tracheobronchial tree. Findings: The laryngeal mask airway is in good position. The vocal cords appear normal. The subglottic space is normal. The trachea is of normal caliber. The lauren is sharp. The tracheobronchial tree was examined to at least the first subsegmental level. Bronchial mucosa and anatomy are normal; there are no endobronchial lesions, and no secretions. The scope was withdrawn and replaced with the EBUS bronchoscope to accomplish the ultrasound examination. Lymph Nodes: An endobronchial ultrasound endoscope was utilized to systematically examine the subcarinal mediastinum (level 7) and right hilar region (level 10R) in order to assist with fine needle aspiration. Lymph node sizing was performed via endobronchial ultrasound. Sampling by transbronchial needle aspiration was also performed using an Olympus EBUS-TBNA 21 gauge needle in the subcarinal mediastinum (level 7) and right hilar region (level 10R). - The 7 (subcarinal) node was evaluated. Two samples with the needle were obtained. - The 10R (hilar) node was evaluated. Two samples with the needle were obtained. Lymph Nodes: A PET scan was found to be hypermetabolic in the subcarinal mediastinum (level 7) and right hilar region (level 10R) nodes. Lymph Nodes: Rapid On-Site Evaluation (JOSE): Preliminary cytology was suggestive of malignancy (final results are pending). Impression: - Mediastinal adenopathy - The airway examination was normal. - Endobronchial ultrasound was performed. - Lymph node sizing and sampling was performed. - Rapid On-Site Evaluation (JOSE): Preliminary cytology was suggestive of malignancy (final results are pending). Recommendation: - Await biopsy results. Procedure Code(s): --- Professional --- 85898, Bronchoscopy, rigid or flexible, including fluoroscopic guidance, when performed; with endobronchial ultrasound (EBUS) guided transtracheal and/or transbronchial sampling (eg, aspiration[s]/biopsy[ies]), one or two mediastinal and/or hilar lymph node stations or structures Diagnosis Code(s): --- Professional --- R59.0, Localized enlarged lymph nodes R09.89, Other specified symptoms and signs involving the circulatory and respiratory systems CPT copyright 2017 [employer] [place] [employer]. All rights reserved. The codes documented in this report are preliminary and upon property consultant review may be revised to meet current compliance requirements. DO Blair Darnell MD 10/16/2019 1:13:18 PM This report has been signed electronically. Number of Addenda: 0 Note Initiated On: 10/16/2019 10:45 AM
[2019-10-16 13:15] VITALS: BP 139/63; BP 191/69; PULSE 75; RESP 16; O2SAT 97
[2019-10-16 13:30] VITALS: BP 152/63; BP 191/69; PULSE 67; RESP 16; O2SAT 99
[2019-10-16 13:33] VITALS: BP 140/68; BP 191/69; PULSE 67; RESP 16; TEMP 36.5; O2SAT 98
[2019-10-16 14:57] VITALS: BP 179/72; BP 191/69; PULSE 65; RESP 16; TEMP 36.9; O2SAT 100
== END 2019-10-16 15:08 | disposition home or self-care (01) ==
LOC: EN 11:17 → AC 11:18
PROVIDERS: PCP Internal Medicine; Referring Provider Internal Medicine; Visit Provider Internal Medicine Critical Care Medicine
PROC: BB4BZZZ Ultrasonography of Pleura (ICD-10-PCS; CPT 31652; principal; 2019-10-16 12:00)
DX: C78.01 Secondary malignant neoplasm of right lung (principal); F41.9 Anxiety disorder, unspecified; J45.909 Unspecified asthma, uncomplicated; E03.9 Hypothyroidism, unspecified; E78.00 Pure hypercholesterolemia, unspecified; F32.9 Major depressive disorder, single episode, unspecified; Z85.51 Personal history of malignant neoplasm of bladder; Z79.51 Long term (current) use of inhaled steroids; Z79.899 Other long term (current) drug therapy; Z92.3 Personal history of irradiation; Z92.21 Personal history of antineoplastic chemotherapy
CPT/HCPCS: 31652; 88108; 88161; 88305; 88313; 88341; 88342; J7120; A4216; J2405